=== PATIENT | female | born 1995 | race American Indian/Alaskan Native ===

== ENCOUNTER 2017-05-30 16:35 | Emergency (ER) | payer OTHER ==
[2017-05-30 17:02] VITALS: TEMP 102.8
[2017-05-30] MEDS ORDERED: Sodium Chloride 0.9% 1,000 ML IV STA ×2 (17:15→17:20)
[2017-05-30] MEDS ORDERED: Sodium Chloride 0.9% 1,000 ML IV SCH (17:15)
--- NOTE | 2017-05-30 17:16 | ED PDOC ---
Arrival/HPI - General Chief Complaint: Fever Time Seen by Provider: 05/30/17 17:13 Historian: Patient - History of Present Illness Narrative History of Present Illness (Text): 05/30/17 17:14 22 y/o female, no pmh, nkda, c/o Past Medical History - Infectious Disease Hx of Infectious Diseases: None - Reproductive Menopause: No - Psychiatric Hx Substance Use: No - Anesthesia Hx Anesthesia: No Family/Social History Smoking Status: Unknown If Ever Smoked Hx Alcohol Use: No Hx Substance Use: No Allergies/Home Meds Allergies/Adverse Reactions: Allergies seasonal Allergy (Uncoded 05/30/17 17:02) CONGESTION Home Medications: Home Meds Medication Instructions Recorded Confirmed No Known Home Med 05/30/17 05/30/17 Physical Exam Vital Signs Temp Pulse Resp BP Pulse Ox 05/30/17 16:58 102.8 F H 110 H 20 86/61 L 98 Disposition/Present on Arrival - Present on Arrival History of DVT/PE: No History of Uncontrolled Diabetes: No Urinary Catheter: No History of Decub. Ulcer: No History Surgical Site Infection Following: None - Disposition
--- NOTE | 2017-05-30 17:24 | ED PDOC ---
Arrival/HPI - General Chief Complaint: Fever Time Seen by Provider: 05/30/17 17:13 Historian: Patient - History of Present Illness Narrative History of Present Illness (Text): 05/30/17 17:21 22yo female with no PMHx who present with complaint of sore throat, fever and generalized body ache since this afternoon. States she took one cap of OTC Tylenol at 1530. The mother who is by the bedside states patient is complaining that everything hurts. Denies dysphagia, cough, neck pain, nuchal ridgity, rash , nausea, vomiting, diarrhea, urinary symptoms, sick contact, travel. Past Medical History - Provider Review Nursing Documentation Reviewed: Yes - Infectious Disease Hx of Infectious Diseases: None - Reproductive Menopause: No - Psychiatric Hx Substance Use: No - Anesthesia Hx Anesthesia: No Family/Social History - Physician Review Nursing Documentation Reviewed: Yes Family/Social History: Unknown Family HX Smoking Status: Unknown If Ever Smoked Hx Alcohol Use: No Hx Substance Use: No Allergies/Home Meds Allergies/Adverse Reactions: Allergies seasonal Allergy (Uncoded 05/30/17 17:02) CONGESTION Review of Systems - Physician Review All systems were reviewed & negative as marked: Yes - Review of Systems Constitutional: Fevers Eyes: Normal ENT: Sore Throat Respiratory: Normal Cardiovascular: Normal Gastrointestinal: Normal Genitourinary Female: Normal Musculoskeletal: Myalgias Skin: Normal Neurological: Normal Endocrine: Normal Hemo/Lymphatic: Normal Psychiatric: Normal Physical Exam Vital Signs Reviewed: Yes Vital Signs Temp Pulse Resp BP Pulse Ox 05/30/17 18:46 96 H 18 102/56 L 99 05/30/17 16:58 102.8 F H 110 H 20 86/61 L 98 Temperature: Afebrile Blood Pressure: Hypertensive Pulse: Tachycardic Respiratory Rate: Normal Appearance: Positive for: Well-Appearing, Non-Toxic, Comfortable Pain Distress: None Mental Status: Positive for: Alert and Oriented X 3 - Systems Exam Head: Present: Atraumatic, Normocephalic Pupils: Present: PERRL Extroacular Muscles: Present: EOMI Conjunctiva: Present: Normal Mouth: Present: Moist Mucous Membranes Pharnyx: Present: Normal. No: ERYTHEMA, EXUDATE, TONSILS ENLARGED, Peritonsilar Swelling, Uvular Deviation, Muffled/Hoarse Voice, Strider Neck: Present: Normal Range of Motion. No: Meningeal Signs Respiratory/Chest: Present: Clear to Auscultation, Good Air Exchange. No: Respiratory Distress, Accessory Muscle Use Cardiovascular: Present: Regular Rate and Rhythm, Normal S1, S2. No: Murmurs Abdomen: Present: Normal Bowel Sounds. No: Tenderness, Distention, Peritoneal Signs Back: Present: Normal Inspection Upper Extremity: Present: Normal Inspection. No: Cyanosis, Edema Lower Extremity: Present: Normal Inspection. No: Edema Neurological: Present: GCS=15, CN II-XII Intact, Speech Normal Skin: Present: Warm, Dry, Normal Color. No: Rashes Psychiatric: Present: Alert, Oriented x 3, Normal Insight, Normal Concentration Medical Decision Making ED Course and Treatment: 05/30/17 17:25 Pt in ED with complaint of sore throat, body ache and fever PT was tachy and febrile on presentation. she notes that she took 325mg of Tylenol at 1530 Lab ordered Pt will be hydrated 1L NS Toradol 30mg Rapid strep and flu ordered Pt's symptoms likely viral. Will reassess . 05/31/17 01:42 PT's rapid strep/flu was negative Lab was unremarkable PT's symptoms and VS improved in ED after medication and hydration Pt's was placed on Tamiflu for flu like symptoms. She was advised to drink plenty of fluid, rest and take Tylenol/Motrin for pain/fever. Referred to her PMD. TRT ED for any new or worsening symptoms. - Lab Interpretations Lab Results: 05/30/17 17:40 05/30/17 17:40 Lab Results 05/30/17 17:40: Sodium 138, Potassium 3.7, Chloride 103, Carbon Dioxide 24, Anion Gap 14, BUN 7, Creatinine 1.1, Est GFR ( Amer) > 60, Est GFR (Non- Af Amer) > 60, Random Glucose 98, Calcium 9.1, Total Bilirubin 1.1, AST 37 H, ALT 45, Alkaline Phosphatase 55, Total Protein 8.3, Albumin 4.1, Globulin 4.2, Albumin/Globulin Ratio 1.0 L 05/30/17 17:40: Urine Color Yellow, Urine Appearance Clear, Urine pH 6.0, Ur Specific [place] 1.010, Urine Protein Negative, Urine Glucose (UA) Negative, Urine Ketones 15 H, Urine Blood Negative, Urine Nitrate Negative, Urine Bilirubin Negative, Urine Urobilinogen 0.2, Ur Leukocyte Esterase Negative 05/30/17 17:40: Influenza Typ A,B (EIA) Negative for flu a/b, Grp A Beta Strep Ag Negative 05/30/17 17:40: WBC 6.1, RBC 4.50, Hgb 11.6 L, Hct 34.9 L, MCV 77.6 L, MCH 25.8 , MCHC 33.2, RDW 15.1 H, Plt Count 220, MPV 9.3, Gran % 86.4 H, Lymph % (Auto) 7.9 L, [place] % (Auto) 5.2, Eos % (Auto) 0.3 L, Baso % (Auto) 0.2, Gran # 5.27, Lymph # 0.5 L, [place] # 0.3, Eos # 0.0, Baso # 0.01 - Medication Orders Current Medication Orders: Discontinued Medications Sodium Chloride (Sodium Chloride 0.9%) 1,000 mls @ 999 mls/hr IV .Q1H1M STA Stop: 05/30/17 18:20 Last Admin: 05/30/17 18:00 Dose: 999 mls/hr eMAR Start Stop Document 05/30/17 18:00 RD (Rec: 05/30/17 18:00 [facility] [id number] Intravenous Solution Start Date 05/30/17 Start Time 18:00 End Date 05/30/17 End time 19:00 Total Infusion Time 60 Ketorolac Tromethamine (Toradol) 30 mg IVP STAT STA Stop: 05/30/17 17:21 Last Admin: 05/30/17 18:00 Dose: 30 mg MAR Pain Assessment Document 05/30/17 18:00 RD (Rec: 05/30/17 18:00 [facility] [id number][place] Pain Reassessment Is this a pain reassessment? No Sleep Is patient sleeping during reassessment? No Presence of Pain Presence of Pain Yes IVP Administration Document 05/30/17 18:00 RD (Rec: 05/30/17 18:00 [facility] [id number]) Charges for Administration # of IVP Administrations 1 Oseltamivir Phosphate (Tamiflu Cap) 75 mg PO ONCE STA PRN Reason: Protocol Stop: 05/30/17 18:41 Last Admin: 05/30/17 18:54 Dose: 75 mg Disposition/Present on Arrival - Present on Arrival Any Indicators Present on Arrival: No History of DVT/PE: No History of Uncontrolled Diabetes: No Urinary Catheter: No History of Decub. Ulcer: No History Surgical Site Infection Following: None - Disposition Have Diagnosis and Disposition been Completed?: Yes Diagnosis: Flu-like symptoms Disposition: HOME/ ROUTINE Disposition Time: 19:00 Patient Plan: Discharge Condition: STABLE Discharge Instructions (ExitCare): Viral Syndrome (ED) Additional Instructions: Drink plenty of fluid and rest Take Ibuprofen every 6hrs as needed for pain Follow up with your doctor Return to ED for any new or worsening symptoms Prescriptions: Oseltamivir Phosphate [Tamiflu] 75 mg PO BID #10 capsule Referrals: [facility] at [facility] [place] [Outside] - Follow up with primary Forms: [employer] (Djiboutian)
[2017-05-30 18:05] LABS: BASO # 0.01 K/mm3 (0.0-2.0); BASO % 0.2 % (0.0-3.0); EOS % 0.3 % (1.5-5.0); GRAN # 5.27 (1.4-6.5); GRAN % 86.4 % (50.0-68.0); HEMOGLOBIN 11.6 g/dL (12.0-16.0); LYMPH # 0.5 (1.2-3.4); LYMPH % 7.9 % (22.0-35.0); MEAN CELL VOLUME 77.6 fl (80.0-105.0); MEAN CORPUSCULAR HEMOGLOBIN 25.8 pg (25.0-35.0); MEAN CORPUSCULAR HGB CONC 33.2 g/dl (31.0-37.0); MEAN PLATELET VOLUME 9.3 fl (7.0-11.0); MONO # 0.3 (0.1-0.6); MONO % 5.2 % (1.0-6.0); RBC 4.5 10^6/uL (3.5-6.1); RED CELL DISTRIBUTION WIDTH 15.1 % (11.5-14.5); WHITE BLOOD COUNT 6.1 10^3/ul (4.5-11.0)
[2017-05-30 18:06] LABS: URINE APPEARANCE CLEAR (CLEAR); URINE BILIRUBIN NEGATIVE (NEGATIVE); URINE BLOOD NEGATIVE (NEGATIVE); URINE COLOR YELLOW (YELLOW); URINE GLUCOSE (UA) NEGATIVE (NEGATIVE); URINE LEUKOCYTE ESTERASE NEGATIVE Leu/uL (NEGATIVE); URINE NITRATE NEGATIVE (NEGATIVE); URINE PROTEIN NEGATIVE mg/dL (<30 mg/dL); URINE UROBILINOGEN 0.2 E.U./dL (<1 E.U./dL)
[2017-05-30 18:10] LABS: ALBUMIN 4.1 g/dL (3.0-4.8); ALT/SGPT 45 U/L (7-56); AST/SGOT 37 U/L (14-36); BLOOD UREA NITROGEN 7 mg/dL (7-21); CALCIUM 9.1 mg/dL (8.4-10.5); GFR AFRICAN-AMERICAN > 60; GFR NON-AFRICAN AMERICAN > 60
[2017-05-30 18:32] LABS: INFLUENZA A B NEGATIVE FOR FLU A/B (NEGATIVE)
[2017-05-30 18:47] VITALS: BP 102/56; PULSE 96; RESP 18; O2SAT 99
== END 2017-05-30 19:27 | disposition home or self-care (01) ==
LOC: ED 16:35
DX: J11.1 Influenza due to unidentified influenza virus with other respiratory manifestations (principal)
CPT/HCPCS: 80053; 81003; 85025; 87070; 87430; 87804; 96361; 96374; 99283; J1885; J7040